=== PATIENT | male | born 1985 | race Caucasian/White ===

== ENCOUNTER 2021-12-20 11:46 | Outpatient (CLI) | payer BC | END 2021-12-20 11:47 | disposition home or self-care (01) | LOC: CSHRAD 11:46 | PROVIDERS: ATTEND Internal Medicine | DX: M79.672 Pain in left foot (principal) ==

== ENCOUNTER 2022-02-19 15:46 | Outpatient (CLI) | payer BC | END 2022-02-19 15:47 | disposition home or self-care (01) | LOC: CSHLAB 15:46 | PROVIDERS: ATTEND Internal Medicine Gastroenterology | DX: Z20.822 Contact with and (suspected) exposure to COVID-19 (principal); K21.9 Gastro-esophageal reflux disease without esophagitis; R10.9 Unspecified abdominal pain | CPT/HCPCS: 87811 ==

== ENCOUNTER 2022-02-24 05:58 | Day surgery (SDC) | payer BC ==
[2022-02-20 10:17] VITALS: BMI 27.6
[2022-02-24] MEDS ORDERED: Lidocaine 1% MPF 2 ML VIAL ONE (06:57)
[2022-02-24] MEDS ORDERED: PROPOFOL 60 ML ONE (07:00)
[2022-02-24] MEDS ORDERED: Midazolam HCl 2 mg/2 ml Vial ONE (07:01)
[2022-02-24] MEDS ORDERED: Fentanyl 100 MCG/2 ML VIAL ONE (07:01)
[2022-02-24] MEDS ORDERED: Lidocaine 2% PF 100 mg/5 ml Syringe ONE (07:01)
== END 2022-02-24 08:49 | disposition home or self-care (01) ==
LOC: CSHSDC 05:58
PROVIDERS: ATTEND Internal Medicine Gastroenterology
PROC: 0DJD8ZZ Inspection of Lower Intestinal Tract, Via Natural or Artificial Opening Endoscopic (ICD-10-PCS; principal; 2022-02-24)
PROC: 0DB78ZX Excision of Stomach, Pylorus, Via Natural or Artificial Opening Endoscopic, Diagnostic (ICD-10-PCS; principal; 2022-02-24)
DX: K29.50 Unspecified chronic gastritis without bleeding (principal); K21.9 Gastro-esophageal reflux disease without esophagitis; K64.4 Residual hemorrhoidal skin tags; Z20.822 Contact with and (suspected) exposure to COVID-19
CPT/HCPCS: 88305; 88342; J2001; J2250; J2704; J3010